=== PATIENT | male | born 1985 | race Two or more races ===

== ENCOUNTER 2024-04-26 22:16 | Inpatient (IN) | payer OTHER ==
[~2024-04-26] VITALS: Ht 167.6 cm; Wt 70.9 kg
[2024-04-27 00:18] LABS: BASOPHILS % (AUTO) 0.3 % (0.0-2.0); EOSINOPHILS % (AUTO) 0.4 % (1.0-6.0); HEMOGLOBIN 14.5 g/dL (13.5-17.5); LYMPHOCYTES # (AUTO) 1.4 K/uL (1.0-4.8); LYMPHOCYTES % (AUTO) 9.7 % (22.0-44.0); MEAN CORPUSCULAR HEMOGLOBIN 28.4 pg (26.0-34.0); MEAN CORPUSCULAR VOLUME 86 fL (80-100); MONOCYTES # (AUTO) 1.1 K/uL (0.1-1.0); MONOCYTES % (AUTO) 8.1 % (2.0-9.0); NEUTROPHILS # (AUTO) 11.4 K/uL (1.8-7.7); NEUTROPHILS % (AUTO) 81.5 % (40.0-70.0); PLATELET COUNT (AUTO) 221 K/uL (150-450); RED CELL DISTRIBUTION WIDTH 18.6 % (11.5-14.5)
[2024-04-27] MEDS: MORPHINE SULFATE 4 MG/ML SYRINGE IVP ONE (00:25)
[2024-04-27] MEDS: SODIUM CHLORIDE 0.9% 2,150 ML IV ONE (00:25)
[2024-04-27 00:36] LABS: LACTIC ACID 1.2 mmol/L (0.4-2.0)
[2024-04-27 00:41] LABS: ANION GAP 11 mmol/L (8-16); CALCIUM, TOTAL 9.3 mg/dL (8.8-10.5); CARBON DIOXIDE 24 mmol/L (22-29); CHLORIDE 103 mmol/L (98-107); CREATININE 0.91 mg/dL (0.60-1.30); GLOMERULAR FILTR. RATE CALC > 60 mL/min (>60); GLUCOSE,RANDOM 112 mg/dL (70-110); POTASSIUM 4.2 mmol/L (3.5-5.1); SODIUM SERUM 138 mmol/L (136-145); UREA NITROGEN, BLOOD 8 mg/dL (7-18)
[2024-04-27 01:12] LABS: ALANINE AMINOTRANSFERASE 25 U/L (12-78); ALBUMIN 3.9 g/dL (3.4-5.0); ALKALINE PHOSPHATASE 131 U/L (46-116); ASPARTATE AMINOTRANSFERASE 26 U/L (15-37); BILIRUBIN,TOTAL 0.6 mg/dL (0.1-1.0); CREATINE KINASE, TOTAL ONLY 536 U/L (39-308); TOTAL PROTEIN, SERUM 7.4 g/dL (6.4-8.2)
[2024-04-27] MEDS: VANCOMYCIN 1.5 GM/WATER(PEG) 300 ML IV ONE (01:14)
[2024-04-27 01:20] LABS: C-REACTIVE PROTEIN QUANT 7.79 mg/dL (0.00-0.30)
[2024-04-27] MEDS: DiphenhydrAMINE HCL 50 MG/ML VIAL IVP ONE (01:53)
[2024-04-27] MEDS ORDERED: ONDANSETRON HCL 4 MG/2 ML VIAL IVP PRN (02:30)
[2024-04-27 05:08] VITALS: BP 120/77; PULSE 55; RESP 16; TEMP 97.6; O2SAT 98
[2024-04-27] MEDS ORDERED: VANCOMYCIN 1GM/WATER(PEG/NADA) 200 ML IV SCH (08:00)
[2024-04-27] MEDS ORDERED: SODIUM CHLORIDE 0.9% 500 ML IV ONE (08:14)
[2024-04-27] MEDS: CLINDAMYCIN 300 MG/D5% WATER 50 ML IV SCH (08:15)
[2024-04-27] MEDS: DOCUSATE SODIUM 100 MG CAPSULE PO SCH (08:16)
[2024-04-27] MEDS: HEPARIN SODIUM,PORCINE 5,000 UNITS/ML VIAL SQ SCH (08:16)
[2024-04-27 08:21] VITALS: BP 118/68; PULSE 62; RESP 19; TEMP 97.9; O2SAT 98
[2024-04-27] MEDS: ACETAMINOPHEN 325 MG TABLET PO PRN (08:26)
[2024-04-27] MEDS ORDERED: HYDROmorphone HCL 2 MG/ML SYRINGE IVP PRN (11:45)
[2024-04-27] MEDS ORDERED: ONDANSETRON HCL 4 MG/2 ML VIAL IVP ONE (12:00)
[2024-04-27] MEDS ORDERED: ROCURONIUM BROMIDE 10 MG/ML 5 ML VIAL IVP ONE (12:00)
[2024-04-27] MEDS ORDERED: SUGAMMADEX SODIUM 200 MG/2 ML VIAL IVP ONE (12:00)
[2024-04-27] MEDS ORDERED: SUCCINYLCHOLINE CHLORIDE 20 MG/ML 10 ML VIAL IVP ONE (12:00)
[2024-04-27] MEDS ORDERED: DEXAMETHASONE SOD PHOS 4 MG/ML VIAL IVP ONE (12:00)
[2024-04-27] MEDS ORDERED: LIDOCAINE/PF 2% 5 ML VIAL IM ONE (12:00)
[2024-04-27] MEDS ORDERED: KETOROLAC TROMETHAMINE 60 MG/2 ML VIAL IM ONE (12:00)
[2024-04-27] MEDS ORDERED: PROPOFOL 1% 20 ML VIAL IVP ONE (12:00)
[2024-04-27] MEDS ORDERED: FentaNYL CITRATE PF 100 MCG/2 ML VIAL IVP ONE (12:00)
[2024-04-27] MEDS ORDERED: CeFAZolin SODIUM 1 GM VIAL IVP ONE (12:00)
[2024-04-27] MEDS ORDERED: MIDAZOLAM HCL 2 MG/2 ML VIAL IVP ONE (12:00)
[2024-04-27] MEDS: BUPIVACAINE 0.25%/EPI 1:200,000/PF 30 ML VIAL ONE (13:50)
[2024-04-27] MEDS ORDERED: HYDROGEN PEROXIDE 473 ML SOLUTION ONE (14:07)
[2024-04-27] MEDS ORDERED: FentaNYL CITRATE PF 100 MCG/2 ML VIAL ONE (15:09)
[2024-04-27] MEDS: FentaNYL CITRATE PF 100 MCG/2 ML VIAL IVP PRN (15:10)
[2024-04-27 20:00] VITALS: BP 128/77; PULSE 81; RESP 18; TEMP 97.8; O2SAT 97
[2024-04-27] MEDS: OXYGEN THERAPY IH SCH (20:00)
[2024-04-28] MEDS: KETOROLAC TROMETHAMINE 15 MG/ML VIAL IVP ONE (02:12)
[2024-04-28 04:06] VITALS: BP 138/80; PULSE 56; RESP 20; TEMP 97.8; O2SAT 98
[2024-04-28 07:43] LABS: BASOPHILS % (AUTO) 0.2 % (0.0-2.0); EOSINOPHILS % (AUTO) 0.4 % (1.0-6.0); HEMATOCRIT 40.5 % (41-53); HEMOGLOBIN 13.4 g/dL (13.5-17.5); LYMPHOCYTES # (AUTO) 2.2 K/uL (1.0-4.8); LYMPHOCYTES % (AUTO) 20.8 % (22.0-44.0); MEAN CORPUSCULAR HEMOGLOBIN 28.6 pg (26.0-34.0); MEAN CORPUSCULAR HGB CONC 33.2 G/dL (31.0-37.0); MEAN CORPUSCULAR VOLUME 86 fL (80-100); MONOCYTES # (AUTO) 0.7 K/uL (0.1-1.0); MONOCYTES % (AUTO) 6.9 % (2.0-9.0); NEUTROPHILS # (AUTO) 7.8 K/uL (1.8-7.7); NEUTROPHILS % (AUTO) 71.7 % (40.0-70.0); PLATELET COUNT (AUTO) 225 K/uL (150-450); RED CELL DISTRIBUTION WIDTH 18.5 % (11.5-14.5); WHITE BLOOD COUNT (AUTO) 10.8 K/uL (4.5-11.0)
[2024-04-28 07:49] LABS: ANION GAP 11 mmol/L (8-16); CALCIUM, TOTAL 8.6 mg/dL (8.8-10.5); CARBON DIOXIDE 26 mmol/L (22-29); CHLORIDE 103 mmol/L (98-107); GLOMERULAR FILTR. RATE CALC > 60 mL/min (>60); GLUCOSE,RANDOM 111 mg/dL (70-110); POTASSIUM 3.7 mmol/L (3.5-5.1); SODIUM SERUM 139 mmol/L (136-145); UREA NITROGEN, BLOOD 8 mg/dL (7-18)
[2024-04-28 07:56] VITALS: BP 127/85; PULSE 56; RESP 18; TEMP 98; O2SAT 98
[2024-04-28] MEDS: KETOROLAC TROMETHAMINE 30 MG/ML VIAL IVP PRN (16:15)
[2024-04-28] MEDS ORDERED: MORPHINE SULFATE 2 MG/ML SYRINGE ONE (17:26)
[2024-04-28] MEDS: POVIDONE-IODINE 10% 120 ML SOLUTION TP SCH (18:07)
[2024-04-28] MEDS: MORPHINE SULFATE 2 MG/ML SYRINGE IVP PRN (18:08)
[2024-04-28 19:21] VITALS: BP 128/82; PULSE 78; RESP 18; TEMP 97.8; O2SAT 98
[2024-04-29 04:29] VITALS: BP 119/81; PULSE 61; RESP 18; TEMP 98; O2SAT 98
[2024-04-29] MEDS: KETOROLAC TROMETHAMINE 15 MG/ML VIAL IVP PRN (06:46)
[2024-04-29 08:56] VITALS: BP 133/82; PULSE 58; RESP 20; TEMP 97.8; O2SAT 98
[2024-04-29] MEDS ORDERED: SODIUM CHLORIDE 0.9% IRRIG BTL 1,000 ML IRRIG ONE (12:27)
[2024-04-29 20:29] VITALS: BP 140/81; PULSE 65; RESP 16; TEMP 98.1; O2SAT 96
[2024-04-30 08:02] VITALS: BP 112/69; PULSE 52; RESP 18; TEMP 97.9; O2SAT 98
[2024-04-30 19:32] VITALS: BP 123/73; PULSE 76; RESP 20; TEMP 98.1; O2SAT 98
[2024-05-01 05:40] VITALS: BP 121/89; PULSE 64; RESP 20; TEMP 97.6; O2SAT 96
[2024-05-01 07:28] VITALS: BP 113/75; PULSE 69; RESP 18; TEMP 97.8; O2SAT 99
[2024-05-01 15:41] VITALS: BP 123/84; PULSE 68; RESP 20; TEMP 98.2; O2SAT 97
[2024-05-01 20:00] VITALS: BP 119/80; PULSE 75; RESP 18; TEMP 97.5; O2SAT 95
[2024-05-02 06:02] VITALS: BP 116/66; PULSE 61; RESP 18; TEMP 97.9; O2SAT 97
[2024-05-02 07:36] VITALS: BP 100/61; PULSE 58; RESP 19; TEMP 97.4; O2SAT 98
[2024-05-02 17:27] VITALS: BP 110/54; PULSE 58; RESP 18; TEMP 98; O2SAT 98
[2024-05-02 19:40] VITALS: BP 126/67; PULSE 71; RESP 18; TEMP 98.4; O2SAT 95
[2024-05-03 09:14] VITALS: BP 125/83; PULSE 61; RESP 18; TEMP 97.5; O2SAT 100
[2024-05-03] MEDS ORDERED: CLIN300C58 PO (10:34)
[2024-05-03] MEDS ORDERED: [UNRECOGNIZED DRUG - CODE] TP (10:35)
[2024-05-03] MEDS ORDERED: ACET-2247 PO (10:35)
== END 2024-05-03 15:55 | DRG 854 ==
LOC: EMS 22:16 → EDH 04-27 03:04 → 6S 04-27 05:10
PROVIDERS: ADMIT Internal Medicine; ATTEND Internal Medicine
PROC: 0WBF0ZZ Excision of Abdominal Wall, Open Approach (ICD-10-PCS; principal; 2024-04-27 16:30)
DX: A41.9 Sepsis, unspecified organism (principal); I96 Gangrene, not elsewhere classified; L02.211 Cutaneous abscess of abdominal wall; M62.82 Rhabdomyolysis; L03.311 Cellulitis of abdominal wall; R74.8 Abnormal levels of other serum enzymes; Z88.1 Allergy status to other antibiotic agents
CPT/HCPCS: 80048; 80053; 82550; 83605; 83735; 84145; 85025; 86140; 87015; 87040; 87070; 87081; 87186; 87205; 87206; 88304; 93005; 99285; J0330; J0690; J1100; J1200; J1644; J1885; J2250; J2270; J2405; J2704; J3010; J3490; J7040; 36415-L1; 36415-TC; Z7610